=== PATIENT | female | born 1955 | race Caucasian/White ===

== ENCOUNTER → 2023-05-02 09:24 | Outpatient (REF) | payer MEDICARE, OTHER, SELFPAY | LOC: HWRAD 09:24 | PROVIDERS: ATTENDING PHYSICIAN Internal Medicine; FAMILY PHYSICIAN Family Medicine | DX: F17.210 Nicotine dependence, cigarettes, uncomplicated (principal) | CPT/HCPCS: 71271 ==

== ENCOUNTER 2023-06-01 10:43 | Inpatient (IN) | payer MEDICARE, OTHER, SELFPAY ==
[2023-06-01] VITALS (14 sets, daily range): BP systolic 96–135; BP diastolic 62–84; BMI 34.6; BMI 33.9
[2023-06-01 06:13] LABS: % Basophils 0.3 % (0-2); % Eosinophils 0.1 % (0-6); % Immature Granulocytes 0.6 % (0-0.5); % Monocytes 5.5 % (1.7-9.3); % Neutrophils 81.5 % (42.2-75.2); Absolute Immature Granulocytes 0.1 10^3/uL (0-0.05); Absolute Monocytes 0.5 10^3/uL (0.1-0.6); Absolute Neutrophils 7.1 10^3/uL (1.4-6.5); Hematocrit 35.9 % (37.0-47.0); Hemoglobin 12.3 g/dL (12.0-16.0); Mean Corp Hgb Conc. 34.3 g/dL (33.0-37.0); Mean Corpuscular Hgb 29.5 pg (27.0-31.0); Mean Corpuscular Volume 86.1 fL (81.0-99.0); Mean Platelet Volume 9.6 fL (7.4-10.4); Nucleated Red Blood Cells % 0 %; Platelet Count 226 10^3/uL (130-400); Red Blood Cell Count 4.17 10^6/uL (4.20-5.40); Red Cell Dist. Width 14.9 % (11.5-14.5); White Blood Cell Count 8.7 10^3/uL (4.8-10.8)
--- NOTE | 2023-06-01 06:20 | ED.GENMED ---
History of Present Illness
General
Chief Complaint: Breathing Problem
Source: patient
Time Seen by Provider: 06/01/23 06:13
Travel History
Have you had any contact with someone who has COVID-19?: No
Do you have any symptoms of coronavirus? Fever > 100 degrees, chills, cough, shortness of breath, sore throat, loss of taste or smell, muscle aches, or headache?: No
History of Present Illness
History of Present Illness:
67-year-old female presents to the emergency room complaining of shortness of breath and COPD exacerbation. Patient has been feeling unwell for the past 3 to 4 days. Patient was vacationing in [place] when she began to feel increased shortness of
breath, cough and wheezing. She went to an urgent care where she was found to be hypoxic. She received nebs, a 'shot' of a steroid and was prescribed doxycycline. She did feel a bit better after her urgent care visit and decided to come directly
home. They returned home from [place] yesterday. She became quite short of breath again early this morning. She checked her home pulse ox and obtained a reading of 79%. Upon arrival here she was noted to have a pulse ox of 84%. She does endorse
a productive cough. She attempted nebs at home prior to coming to the emergency room without improvement.
Past History
Past History
ED Past Medical History: Cancer (right breast 2017), COPD, GERD, HTN, Hypercholesterolemia and Other (RA)
ED Past Surgical History: Orthopedic, Tonsilectomy and Other (Right mastectomy 2017 (no chemo, no radiation))
Social History
Tobacco: Smoker (5 cigarettes/day)
Alcohol: Occasional
Drug: None
Personal:
Living: with family
Employment: Employed
Family History
Family History: Other (Nonsignificant)
Phy Exam
Physical Exam
Physical Exam:
General: Awake, Alert, Oriented X3. Increased work of breathing
Vitals: Hypoxic on room air
Head: Atraumatic
Eyes: Pupils equal, EOMI
Throat: Airway intact, no exudates
Neck: Trachea midline
Lungs: X-ray wheezing and rhonchi bilaterally
Heart: Regular rate, no murmurs
Abd: Soft, Nontender, No pulsatile mass
Neuro: Nonfocal
Skin: Warm, dry, no rash
Extremities: pulses equal b/l, no edema
Scores
Heart Failure Risk
Heart Failure Risk Score: Not Applicable
Course
Orders/Labs/Results
Orders:
Orders
06/01/23 05:40
Electrocardiogram (*1) Urgent
Reason for Study: Other
Other Reason for Exam: Possible Sepsis
Cardiac Monitoring- Treatment ONCE
IV Insert/Care/Rem.- Treatment PRN
CR Chest Portable - 1 View Urgent
Comment:
Reason For Exam: shortness of breath
Reason Study Needs to be Portable: Patient Unstable
O2 Therapy [RESP] Urgent
Titrate/Wean O2 to maintain O2 sat greater than (%): 93
Special Instructions: TO MAINTAIN CONTINUOUS O2 SATS > OR = 93%
Pulse Ox/cont/shift [RESP] Urgent
Quantity: 1
Special Instructions: CONTINUOUS
06/01/23 05:41
EKG- Treatment ONCE
06/01/23 05:50
COVID-19 Antigen Urgent
Source: Nasal Swab
Complete Blood Count/With Diff Urgent
Comprehensive Metabolic Panel Urgent
Lactic Acid Q4H
Comment: ON ICE, CANCEL 2ND ORDER IF FIRST LACTIC ACID LEVEL <2
Troponin I Urgent
Blood Culture Q30M
CRISELDA Source: Blood/Venous
Specimen Description:
Comment: FROM 2 SEPARATE SITES
INF RAPID [Influenza A+B Rapid Molecular] Urgent
CRISELDA Source: Nasal Swab
Specimen Description:
06/01/23 05:56
Blood Culture Q30M
CRISELDA Source: Blood/Venous
Specimen Description:
Comment: FROM 2 SEPARATE SITES
06/01/23 06:19
Albuterol Sulfate [Ventolin Nebules] 7.5 mg INH R NOW STA
Ipratropium Nebs [Atrovent Nebules] 1 mg INH R NOW STA
06/01/23 06:20
Dexamethasone Sod Phosphate [Decadron] 8 mg IV NOW STA
06/01/23 07:48
Azithromycin 500 mg/250 ml [Zithromax Infusion] 500 mg in 250 ml IV NOW
06/01/23 09:45
Lactic Acid Q4H
Comment: ON ICE, CANCEL 2ND ORDER IF FIRST LACTIC ACID LEVEL <2
Abnormal Lab Results
06/01/23
05:50
RBC 4.17 L 10^6/uL
(4.20-5.40)
Hct 35.9 L %
(37.0-47.0)
RDW 14.9 H %
(11.5-14.5)
Abs Immat Gran (auto) 0.1 H 10^3/uL
(0-0.05)
Absolute Neuts (auto) 7.1 H 10^3/uL
(1.4-6.5)
Absolute Lymphs (auto) 1.0 L 10^3/uL
(1.2-3.4)
Immature Gran % 0.6 H %
(0-0.5)
Neutrophils % 81.5 H %
(42.2-75.2)
Lymphocytes % 12.0 L %
(20.5-51.1)
Sodium 131 L mmol/L
(135-145)
Chloride 95 L mmol/L
(98-107)
AST 39 H U/L
(14-36)
Total Protein 8.5 H g/dl
(6.3-8.2)
06/01/23 05:50
06/01/23 05:50
Vital Signs
Initial and Last Documented VS:
Initial Vital Signs
Temp Pulse Resp BP Pulse Ox
98.9 F 86 28 112/78 84
06/01/23 05:24 06/01/23 05:24 06/01/23 05:24 06/01/23 05:24 06/01/23 05:24
Last Documented Vital Signs
Temp Pulse Resp BP Pulse Ox
99.1 F 95 20 96/62 92
06/01/23 08:29 06/01/23 08:15 06/01/23 08:15 06/01/23 08:15 06/01/23 08:48
MDM/Problems Addressed
Differential Diagnosis Includes:
Pneumonia, bronchitis, COPD exacerbation, pneumothorax
MDM/Problems Addressed:
Patient had some improvement with an hour-long neb. However she still has significant expiratory wheezing on reevaluation. Patient attempted to walk to the bathroom which she was able to do so but felt quite short of breath by the time she got
back to bed. Chest x-ray does not show any obvious infiltrate though there are chronic changes. She is not anemic. Troponin is normal there is no ischemic changes on EKG. Will hospitalize the patient for COPD exacerbation. Will cover with
azithromycin for potential bacterial bronchitis.
*Radiology
Radiology exam reviewed: preliminary read by ED provider (Personally reviewed the patient's chest x-ray see chronic changes COPD but no acute infiltrate)
*Pulse Oximetry
Patient hypoxic: yes
*EKG
Interpreted by ED Provider?: Yes
Interpretation: normal
Heart Rate: 85
Rate: normal
Rhythm: sinus
[place]: normal axis
Interval: normal interval
QRS Pattern: normal QRS
Ischemia: no ischemia
*Pathology Technologist Interpretation
Rate: normal
Interpretation: normal
Heart Rate: 85
Rhythm: sinus
*Critical Care Note
Total Time (30-74mins, 75-104mins- exclusive of procedures): Not Applicable
Patient Management
Social determinants of health affecting care: Strong social support
ED Attending Note
-
Portions of this chart may have been created with voice recognition software.� Occasional wrong word or��sound alike� substitutions may have occurred due to the inherent limitations of voice recognition software.
Discharge Plan
Departure
Patient Disposition: Admit
Date of Disposition: 06/01/23
Time of Disposition: 07:49
Admit to: Med/Surg
Presentation/result/management discussed w/ accepting MD/DO: Hospitalist
Condition: Fair
Discharge Problem:
COPD exacerbation, Hypoxia
Prescriptions:
No Action
hydroxychloroquine 200 MG tablet
400 mg PO DAILY
prednisone 10 mg tablet
10 mg PO .TAPER
Hold Instructions: Resume on 05/06/22.
Rx Instructions:
40mg x 3 days, 30mg x 3 days, 20mg x 3 days, 10mg x 3 days
metoprolol succinate 100 mg tablet extended release 24 hr
100 mg PO HS
amlodipine 5 mg tablet
5 mg PO DAILY
valsartan 320 mg tablet
320 mg PO HS
pravastatin 20 mg tablet
20 mg PO HS
albuterol sulfate 90 mcg/actuation HFA aerosol inhaler
1 puff INHALATION R Q4 PRN (Reason: sob/wheezing)
doxycycline hyclate 100 mg tablet
100 mg PO BID
esomeprazole magnesium [Nexium] 40 mg Capsule,Delayed Release(Dr/Ec)
40 mg PO DAILY
Trelegy Ellipta 200-62.5-25 mcg Blister With Device
1 inh INHALATION DAILY
Referrals:
Guy Srivastava MD [Family Provider] -
Interventions
Interventions:
*Risk Screen - Suicide Last Done: 06/01/23 05:24
*General Assessment Last Done: 06/01/23 05:36
*Neglect/Abuse Screening Last Done: 06/01/23 05:24
ED- Fall Risk Assessment Last Done: 06/01/23 05:50
*ED COVID-19 Vaccine History Last Done: 06/01/23 05:35
ED- Cardiac Assessment Last Done: 06/01/23 06:02
ED- Pulmonary Assessment Last Done: 06/01/23 08:48
[2023-06-01] MEDS: ATROVENT NEBULES 1 MG INH (06:25)
[2023-06-01] MEDS: VENTOLIN NEBULES 7.5 MG INH (06:25)
[2023-06-01 06:27] LABS: ALT (SGPT) 30 U/L (0-35); AST (SGOT) 39 U/L (14-36); Albumin 4.2 g/dl (3.5-5.0); Alkaline Phosphatase 63 U/L (38-126); Blood Urea Nitrogen 16 mg/dl (7-17); Calcium 9.2 mg/dl (8.4-10.2); Carbon Dioxide 30 mmol/L (22-30); Chloride 95 mmol/L (98-107); Estimated Creatinine Clearance 82 ml/min; Glucose 78 mg/dl (70-99); Potassium 3.9 mmol/L (3.5-5.1); Sodium 131 mmol/L (135-145); Total Bilirubin 0.5 mg/dl (0.2-1.3); Total Protein 8.5 g/dl (6.3-8.2); eGFR > 60.00
[2023-06-01 06:29] LABS: Lactic Acid 1.7 mmol/L (0.7-2.0)
[2023-06-01 06:31] LABS: COVID-19 Antigen Negative (Negative)
[2023-06-01 06:37] LABS: Troponin I < 0.012 ng/ml
[2023-06-01] MEDS: DECADRON 8 MG IV (06:38)
[2023-06-01] MEDS: ZITHROMAX INFUSION 250 IV (08:42)
--- NOTE | 2023-06-01 10:07 | W.PN.HOSP.TC ---
Today's Communication/Plan
-
steroids abx
Assessment / Plan
Assessment / Plan
Acute Hypoxic Respiratory Distress
Chronic obstructive lung disease
Hx of Cigs
has not fully stopped, though markedly reduced consumption to ~3 Cigs per month
Hx of Breast Cancer
Rt breast mastectomy 2017, URIEL, no chemo or XRT
HLD
P:steroids
abx
Pulm consult
full code
see dictated note
Anticipated Discharge: > 48 hours
Subjective/Interval History
-
Date of Service: June 01, 2023
Had been doing well past 13 months with several minor flares only, went to [place] (airplane) and within 4 days noted worsening respiratory distress. Returned to area where checked her SaO2 at 79%, came to [facility] this morning
Objective Data
-
Labs:
Laboratory Results
06/01/23
05:50
WBC 8.7
Hgb 12.3
Hct 35.9 L
Plt Count 226
Sodium 131 L
Potassium 3.9
Chloride 95 L
Carbon Dioxide 30
BUN 16
Creatinine 0.7
Glucose 78
Calcium 9.2
Total Bilirubin 0.5
AST 39 H
ALT 30
Alkaline Phosphatase 63
Vital Signs:
Vital Signs
Temp Pulse Resp BP Pulse Ox
99.1 F 95 20 96/62 92
06/01/23 08:29 06/01/23 08:15 06/01/23 08:15 06/01/23 08:15 06/01/23 08:48
Review of Systems
-
History Source: Patient and Coordinated Provider
Constitutional: Denies Fever
EENT: Denies Sore Throat
Respiratory: Reports Cough, Trouble Breathing and Wheezing
Cardiac: Denies Chest Pain
Abdomen/GI: Reports No Symptoms
Genitourinary: Reports No Symptoms
Musculoskeletal: Reports No Symptoms
Neuro: Reports No Symptoms
Physical Exam
-
General: Well Developed, Well Nourished, Respiratory Distress, Conversant and Obese
HEENT: Normocephalic, Atraumatic and Moist Mucous Membranes
Respiratory: Wheezes (tight high freq expiratory wheeze) and Decreased Breath Sounds (poor air movement)
Cardiac: Regular Rhythm and S1/S2
GI: Soft, Nontender and Nondistended
Musculoskeletal: No Clubbing, No Cyanosis and No Edema
Neuro: Awake, Alert and Oriented
--- NOTE | 2023-06-01 10:37 | CON.PUL ---
Consultation
Consultation Request
Date/Time Consultation Requested: 06/01/2023-8 AM
Date/Time Consultation Performed: 06/01/2023-8:30 AM
Requesting Provider: Hospitalist
Performing Provider: Dr. Thornton
Reason for Consultation: Shortness of breath
Medical History
-
Chief Complaint: Shortness of breath
History of Present Illness:
67-year-old female with a history of underlying COPD followed by Dr. Sheela Wallace who recently went to [place], developed an upper respiratory tract infection and had increasing wheezing, shortness of breath and came to the emergency room with a COPD
exacerbation-pulmonary consulted for COPD exacerbation 06/01/2023. She feels improved on oxygen and after nebulizer. She continues have significant shortness of breath. She does not complain of any fevers, chills or night sweats. She has some
chest congestion but minimal sputum production. She has increased wheezing but no nausea, abdominal pain, leg swelling or weakness.
Past Medical History
Past Medical History: None (COPD on albuterol, Breztri-Dr. Wallace. Active smoker-minimal now-former [id number]. Pulmonary fibrosis seen on CT 2017 after covid-mild.Covid 2020. Right breast cancer 2017. GERD. Hypertension. Hyperlipidemia.
Sleep apnea on CPAP with 2 L. RA on hydroxychloroquine. Tonsillectomy.)
Social History
Tobacco: Smoker ([id number]-now down to 1 cigarette every several days)
Alcohol: None
Drug: None
Personal:
Living: With Family
Occupational Exposures: No known tuberculosis exposure
Environmental Exposures: No known asbestos exposure
Family History
Family History: Reviewed & Not Pertinent
Allergies / Home Medications
Allergies
Allergy/AdvReac Type Severity Reaction Status Date / Time
No Known Allergies Allergy Verified 06/01/23 05:30
Home Medications
Medication Instructions Recorded Confirmed Last Taken Type
hydroxychloroquine 200 mg tablet 400 mg PO DAILY Autoimmune Disorder 1006/01/23 06/01/23 History
amlodipine 5 mg tablet 5 mg PO DAILY Blood Pressure 04/29/22 06/01/23 06/01/23 History
esomeprazole magnesium 40 mg 40 mg PO DAILY Gastrointestinal 04/29/22 06/01/23 06/01/23 History
capsule,delayed release (Nexium) Issue
metoprolol succinate 100 mg 100 mg PO HS Blood Pressure 04/29/22 06/01/23 05/31/23 History
tablet,extended release 24 hr
pravastatin 20 mg tablet 20 mg PO DAILY High Cholesterol 04/29/22 06/01/23 06/01/23 History
valsartan 320 mg tablet 320 mg PO HS Blood Pressure 04/29/22 06/01/23 05/31/23 History
doxycycline monohydrate 100 mg 100 mg PO BID Infection 06/01/23 06/01/23 06/01/23 History
capsule
fluticasone fur. 200 mcg-umeclid 1 inh inhalation R DAILY COPD 06/01/23 06/01/23 06/01/23 History
62.5 mcg-vilant 25 mcg
inhalat.powder (Trelegy Ellipta)
ipratropium 0.5 mg-albuterol 3 mg 3 ml inhalation R TIDPRN PRN sob 06/01/23 06/01/23 06/01/23 History
(2.5 mg base)/3 mL nebulization
soln
magnesium oxide 500 mg PO DAILY Supplement 06/01/23 06/01/23 06/01/23 History
Review of Systems
-
Unable to Obtain full review of systems at this time due to: Other (Per HPI)
Vitals / Labs / Diagnostic Testing
Vital Signs
Temp Pulse Resp BP Pulse Ox
99.1 F 95 20 96/62 92
06/01/23 08:29 06/01/23 08:15 06/01/23 08:15 06/01/23 08:15 06/01/23 08:48
Lab Data
06/01/23 05:50
06/01/23 05:50
Microbiology
06/01/23 05:50 Nasal Swab Influenza Types A & B (LADI) - Final
Negative for Influenza A & B, NAAT
Negative results must be combined with clinical observations
and patient history.
Nucleic Acid Amplification test (NAAT)performed on the
[employer] platform.
Diagnostic Testing:
Physical Exam
-
Exam:
Well-nourished and well-developed in no apparent distress
HEENT-atraumatic, normocephalic
Neck-supple, no JVD, no bruit
Heart-regular rate and rhythm-no murmurs, rubs or gallops
Chest with diminished breath sounds, prolonged expiratory time and expiratory wheezes bilaterally without crackles
Back without CVA tenderness
Abdomen-soft, nontender, nondistended, no hepatosplenomegaly
Extremities-no cyanosis, clubbing, edema and good peripheral pulses
Integument-intact, no rashes, lesions or ecchymosis
Neurology-alert and oriented, nonfocal motor and sensory exam
Assessment
-
67-year-old female with a history of underlying COPD followed by Dr. Sheela Wallace who recently went to [place], developed an upper respiratory tract infection and had increasing wheezing, shortness of breath and came to the emergency room with a COPD
exacerbation-pulmonary consulted for COPD exacerbation 06/01/2023.
Assessment
COPD exacerbation
Mild hyponatremia
Conditions present prior to admission:
R breast cancer, US guided biopsy 07-19-16, adenocarcinoma, ER/IN+, s/p mastectomy 2016, no chemo-XRT, on tamoxifen, s/p R breast reconstruction (prosthesis)
COPD, on albuterol, budesonide/glycopyrrolate/formoterol (breztri aerosphere)
Pulmonary fibrosis, seen since CT 2016 with very mild changes, slowly progressing overtime
COVID pneumonia 2020
GERD
HTN
HLD
RA, on hydroxychloroquine
Tonsillectomy
Smoker
Obstructive sleep apnea on CPAP with 2 L oxygen
Nocturnal hypoxemia
Periodic limb movements of sleep
Plan
Patient requires admission for severe COPD exacerbation and respiratory failure
Supplemental oxygen as needed
BiPAP if needed
High flow oxygen if appropriate
Intubate and mechanically ventilate if does not significantly improve
Duo nebs
Pulmicort nebulizers
Mucolytic's
Decadron 4 mg IV every 8 hours
Incentive spirometry
Acapella
Consider vest if difficulties mobilizing secretions
Consider chest physiotherapy if difficulties mobilizing secretions
Check cultures
Agree with empiric antibiotics-Rocephin and azithromycin
Monitor leukocytosis
Monitor blood sugars
Insulin supplementation as needed
Smoking cessation counseling if appropriate
DVT prophylaxis recommended-on heparin
GI prophylaxis recommended if on steroids for prolonged period
Early nutrition
Early mobilization
Reviewed with nursing, respiratory therapy, and primary team.
Outpatient pulmonary [id number]. Tran- Has appointment 06/14/23-10 AM with PFT
Diagnostic data:
Chest x-ray 04/29/2022-NAD, chronic interstitial airspace disease right upper lobe
Chest x-ray 06/01/2023-chronic interstitial changes progressed cannot rule out superimposed pulmonary edema
CT chest low-dose 05/02/2023-no findings suspicious for pulmonary malignancy, moderate changes of fibrotic mildly progressed compared to previous, status post right mastectomy, mildly enlarged mediastinal lymph nodes unchanged
Echocardiogram 01/12/2022-EF 60-65%, no change since 2014
Nuclear stress test 07/18-negative for ischemia, EF 73%, moderate risk study
PSG 10/21/2022-sleep efficiency 63%, AHI-41, desaturation marie 66%, 53% of time less than 90% saturation
CPAP titration 03/08/2023-sleep efficiency 71.6%, CPAP titrated to 11 cm and reduced AHI to 3.0, PLM index 34.9
Data Reviewed
-
PFT: Report reviewed by me
EKG: Report reviewed by me
Radiology: Report reviewed by me
CT Scan: Report reviewed by me
Medical Tests (Nuc Med, Echo etc): Report reviewed by me
Labs: Labs reviewed by me
Old Records: Reviewed
Total Time Spent with Patient (in minutes): 60
--- NOTE | 2023-06-01 13:32 | PTCARENOTE ---
pt aaox3. states her breathing feels better but gets sob when walking to bathroom. on nc4l. breath sounds diminished with ex wheezing. nsr seen on monitor.
--- NOTE | 2023-06-01 13:41 | CM ---
MEt patient in ED room as she was getting ready for lunch. She lives with her in one level home with 2 steps to enter.
SHe is independent in home and community. She has nebulizer, CPAP and oxygen from [employer]. She said she only use oxygen at night through her CPAP.
She does not anticipate any discharge needs.
She had [facility] in past after mastectomy.
PCP Dr. Srivastava
Pharmacy: [facility].
PLAN: home no needs.
[2023-06-01] MEDS: STERILE WATER FOR INJECTION 10 ML IV (13:47)
[2023-06-01] MEDS: ROCEPHIN 1000 MG IV (13:47)
[2023-06-01] MEDS: DECADRON 4 MG IV ×2 (13:47→20:59)
[2023-06-01 15:57] LABS: Urine Albumin Negative (Neg - Trace); Urine Bilirubin Negative (Negative); Urine Character Clear (Clear); Urine Color Yellow; Urine Glucose Negative (Negative); Urine Ketone Negative (Negative); Urine Leukocyte Negative (Negative); Urine Nitrite Negative (Negative); Urine Occult Blood Negative (Negative); Urine Urobilinogen Negative (Neg - 1+)
--- NOTE | 2023-06-01 18:20 | PTCARENOTE ---
Received pt from ER via wheelchair, accompanied by ER staff. Pt AAO x3, VILLALOBOS well, ambulatory to bed, no c/o weakness/dizziness. VSS. Placed on telemetry:NSR. On nc 4 lpm- pulse ox 95%, pt with (+) BENITES, denies SOB; states 'feeling better'. Abd
large, soft, BS (+). Pt DTV; stated will void in BR, will call for assistance if needed. Oriented to 4East, currently resting quietly. Will continue to monitor.
[2023-06-01] MEDS: DUONEB 3 ML INH (19:25)
[2023-06-01] MEDS: TOPROL XL 100 MG PO (20:57)
[2023-06-01] MEDS: HEPARIN 5000 UNITS SC (20:58)
[2023-06-01] MEDS: DIOVAN 320 MG PO (21:11)
[2023-06-02 03:34] VITALS: BP 144/85
[2023-06-02] MEDS: DUONEB 3 ML INH ×4 (04:12→20:11)
[2023-06-02 04:43] VITALS: BMI 33.5
[2023-06-02] MEDS: DECADRON 4 MG IV ×3 (05:01→21:13)
[2023-06-02 07:00] VITALS: BP 124/81
[2023-06-02 07:22] LABS: % Immature Granulocytes 0.3 % (0-0.5); % Lymphocytes 7.5 % (20.5-51.1); % Monocytes 5.4 % (1.7-9.3); % Neutrophils 86.8 % (42.2-75.2); Absolute Lymphocytes 0.4 10^3/uL (1.2-3.4); Absolute Monocytes 0.3 10^3/uL (0.1-0.6); Absolute Neutrophils 5.1 10^3/uL (1.4-6.5); Hematocrit 32.2 % (37.0-47.0); Mean Corp Hgb Conc. 34.2 g/dL (33.0-37.0); Mean Corpuscular Hgb 29.7 pg (27.0-31.0); Mean Platelet Volume 9.4 fL (7.4-10.4); Nucleated Red Blood Cells % 0 %; Platelet Count 174 10^3/uL (130-400); Red Cell Dist. Width 14.5 % (11.5-14.5); White Blood Cell Count 5.9 10^3/uL (4.8-10.8)
[2023-06-02 08:27] LABS: ALT (SGPT) 23 U/L (0-35); AST (SGOT) 29 U/L (14-36); Albumin 3.5 g/dl (3.5-5.0); Alkaline Phosphatase 55 U/L (38-126); Blood Urea Nitrogen 19 mg/dl (7-17); Calcium 8.9 mg/dl (8.4-10.2); Carbon Dioxide 29 mmol/L (22-30); Chloride 97 mmol/L (98-107); Estimated Creatinine Clearance 94 ml/min; Glucose 123 mg/dl (70-99); Potassium 4.1 mmol/L (3.5-5.1); Sodium 129 mmol/L (135-145); Total Bilirubin 0.4 mg/dl (0.2-1.3); Total Protein 7.4 g/dl (6.3-8.2); eGFR > 60.00
[2023-06-02] MEDS: MAGNESIUM OXIDE 500 MG PO (09:18)
[2023-06-02] MEDS: NORVASC 5 MG PO (09:18)
[2023-06-02] MEDS: HEPARIN 5000 UNITS SC ×2 (09:18→20:20)
[2023-06-02] MEDS: PROTONIX 40 MG PO (09:19)
[2023-06-02] MEDS: PLAQUENIL 400 MG PO (09:19)
[2023-06-02] MEDS: PRAVACHOL 20 MG PO (09:42)
--- NOTE | 2023-06-02 09:52 | W.PN.PUL.V3 ---
Today's Communication / Plan
-
Wean oxygen.
Increased activity.
Smoking cessation counseling.
No change in steroids.
Assessment
-
67-year-old female with a history of underlying COPD followed by Dr. Sheela Wallace who recently went to [place], developed an upper respiratory tract infection and had increasing wheezing, shortness of breath and came to the emergency room with a COPD
exacerbation-pulmonary consulted for COPD exacerbation 06/01/2023.
Assessment
COPD exacerbation
Mild hyponatremia
Conditions present prior to admission:
R breast cancer, US guided biopsy 07-19-16, adenocarcinoma, ER/RI+, s/p mastectomy 2016, no chemo-XRT, on tamoxifen, s/p R breast reconstruction (prosthesis)
COPD, on albuterol, budesonide/glycopyrrolate/formoterol (breztri aerosphere)
Pulmonary fibrosis, seen since CT 2016 with very mild changes, slowly progressing overtime
COVID pneumonia 2020
GERD
HTN
HLD
RA, on hydroxychloroquine
Tonsillectomy
Smoker
Obstructive sleep apnea on CPAP with 2 L oxygen
Nocturnal hypoxemia
Periodic limb movements of sleep
Plan
Patient requires admission for severe COPD exacerbation and respiratory failure
Continue supplemental oxygen-attempt to wean and assess discharge needs
BiPAP if needed
Continue duonebs as well as Pulmicort nebulizers
Decadron 4 mg IV every 8 hours-no change-likely will begin to reduce in the next 24 hours
Incentive spirometry Encouraged
Acapella
Consider vest if difficulties mobilizing secretions
Consider chest physiotherapy if difficulties mobilizing secretions
Cultures reviewed
Agree with empiric antibiotics-Rocephin and azithromycin
Follow blood sugars
Insulin supplementation as needed
DVT prophylaxis recommended-on heparin
GI prophylaxis recommended if on steroids for prolonged period
Nutrition
Begin ambulation
Reviewed with nursing
Outpatient pulmonary [id number]-Ch. Tran- has appointment 06/14/23-10 AM with PFT
Diagnostic data:
Chest x-ray 04/29/2022-NAD, chronic interstitial airspace disease right upper lobe
Chest x-ray 06/01/2023-chronic interstitial changes progressed cannot rule out superimposed pulmonary edema
CT chest low-dose 05/02/2023-no findings suspicious for pulmonary malignancy, moderate changes of fibrotic mildly progressed compared to previous, status post right mastectomy, mildly enlarged mediastinal lymph nodes unchanged
Echocardiogram 01/12/2022-EF 60-65%, no change since 2014
Nuclear stress test 07/18-negative for ischemia, EF 73%, moderate risk study
PSG 10/21/2022-sleep efficiency 63%, AHI-41, desaturation marie 66%, 53% of time less than 90% saturation
CPAP titration 03/08/2023-sleep efficiency 71.6%, CPAP titrated to 11 cm and reduced AHI to 3.0, PLM index 34.9
Subjective Data
-
Date of Service:
Date of Service: June 02, 2023
Chief Complaint: Pulmonary Follow Up and Dyspnea Follow Up
Subjective:
Still some wheezing, shortness of breath, no chest pain, difficulties mobilizing secretions, no abdominal pain
Review of Systems
General: Other ( per HPI)
Objective Data
Data Reviewed
Vital Signs / I&O:
Vital Signs
Temp Pulse Resp BP Pulse Ox
98.2 F 68 20 124/81 96
06/02/23 07:00 06/02/23 09:18 06/02/23 07:58 06/02/23 09:18 06/02/23 07:58
Intake and Output
06/01/23 06/02/23 06/03/23
06:59 06:59 06:59
Intake Total 480 / 480
Balance 480 / 480
SaO2: 96
Nasal Cannula flow liters per minute: 4
Physical Exam
General: Respiratory Distress (n) and Comfortable
HEENT: Normocephalic, Anicteric and Moist Mucous Membranes
Cardiovascular: Regular Rhythm
Respiratory: Wheeze ( expiratory), Crackles (n), Rhonchi (n), Non-Labored Respirations, Accessory Resp Muscle Use (n) and Stridor (n)
GI: Soft, Non Distended and Non Tender
Neurology: Awake, Alert and No Motor Deficits
Skin: Warm, Good Color, Cyanosis (n), Jaundice (n) and Rash (n)
Labs/Micro/Reports
Lab Data
06/02/23 07:04
06/02/23 07:04
Microbiology
06/01/23 05:56 Blood/Venous Blood Culture - Preliminary
No Growth in 24 hours- Final report to follow
06/01/23 05:50 Blood/Venous Blood Culture - Preliminary
No Growth in 24 hours- Final report to follow
06/01/23 05:50 Nasal Swab Influenza Types A & B (LADI) - Final
Negative for Influenza A & B, NAAT
Negative results must be combined with clinical observations
and patient history.
Nucleic Acid Amplification test (NAAT)performed on the
[employer] platform.
[2023-06-02] MEDS: ZITHROMAX INFUSION 250 IV (10:21)
[2023-06-02 11:00] VITALS: BP 99/68
--- NOTE | 2023-06-02 12:18 | W.PN.HOSP.TC ---
Today's Communication/Plan
-
continue current Tx
Assessment / Plan
Assessment / Plan
Acute Hypoxic Respiratory Distress
better, now 95% on 3 L/M
Influenza negative, pt unable to raise phlegm to give a sample
Chronic obstructive lung disease
Hx of Cigs
has not fully stopped, though markedly reduced consumption to ~3 Cigs per month. Discussed importance of absolute cessation
Hx of Breast Cancer
Rt breast mastectomy 2017, URIEL, no chemo or XRT
HLD
P:steroids, would not decrease yet
abx
Pulm consult appreciated
full code
met with dgt and in room
Anticipated Discharge: > 48 hours
Subjective/Interval History
-
Date of Service: June 02, 2023
Breathing better
Objective Data
-
Labs:
Laboratory Results
06/02/23
07:04
WBC 5.9
Hgb 11.0 L
Hct 32.2 L
Plt Count 174 D
Sodium 129 L
Potassium 4.1
Chloride 97 L
Carbon Dioxide 29
BUN 19 H
Creatinine 0.5 L
Glucose 123 H
Calcium 8.9
Total Bilirubin 0.4
AST 29
ALT 23
Alkaline Phosphatase 55
Vital Signs:
Vital Signs
Temp Pulse Resp BP Pulse Ox
98 F 73 18 99/68 95
06/02/23 11:00 06/02/23 11:00 06/02/23 11:00 06/02/23 11:00 06/02/23 11:00
I&O
06/01/23 06/02/23 06/03/23
06:59 06:59 06:59
Intake Total 480 / 480
Balance 480 / 480
Review of Systems
-
History Source: Patient and Coordinated Provider
Constitutional: Denies Fever
EENT: Denies Sore Throat
Respiratory: Reports Cough, Trouble Breathing (better) and Wheezing
Cardiac: Denies Chest Pain
Abdomen/GI: Reports No Symptoms
Genitourinary: Reports No Symptoms
Musculoskeletal: Reports No Symptoms
Neuro: Reports No Symptoms
Physical Exam
-
General: Well Developed, Well Nourished, Respiratory Distress, Conversant and Obese
HEENT: Normocephalic, Atraumatic and Moist Mucous Membranes
Respiratory: Wheezes (expiratory wheeze with improved air movement) and Decreased Breath Sounds (significantly improved air movement)
Cardiac: Regular Rhythm and S1/S2
GI: Soft, Nontender and Nondistended
Musculoskeletal: No Clubbing, No Cyanosis and No Edema
Neuro: Awake, Alert and Oriented
--- NOTE | 2023-06-02 14:15 | PN.CDI ---
CDI
- -
CDI:
Physician Documentation Request
Admit Date: 06/01/23 10:43
Dear Doctor Erin,
Clinical Indicators:
Patient admitted with COPD exacerbation.
3/6 H & P, 'Acute hypoxic respiratory distress with significant hypoxemia.'
3/6 Pulmonary consult, '...severe COPD exacerbation and respiratory failure.'
02 requirements:
06/01/23
05:35 06/01/23
05:40 06/01/23
06:02
Nasal Cannula flow liters per minute 6 6 6
Please clarify which of the following accurately represents the patient's respiratory status:
Acute hypoxemic respiratory failure
Hypoxemia only
Other, please specify
Additional information for Respiratory Failure:
Recognized criteria for Respiratory Failure (Source: [facility] Hospitalist Jan 2013)
ABGs: (1 or more) Symptoms Please indicate type if known
1. p)2 <60 or RA SPO2 <91% on RA 1. Tachypnea, SOB, dyspnea Hypoxic
2. pCO2 50 and pH <7.35 2. Use of accessory muscles Hypercapnic
3. pO2 decrease of pCO2 increase by 3. Pallor or cyanosis Hypoxic and Hypercapnic
10 mmHg from baseline if known 4. Anxiety or restlessness Unable to determine
5. Unable to speak in full sentences
Supplemental O2 of > 40% (5LPM) Intubation is not required
Use of terms such as suspected, likely, concern for, or probable (associated with a specific diagnosis that is being evaluated, monitored, or treated as if it exists) are acceptable and can be coded in the inpatient setting, when documented at the
time of discharge.
Thank you,
TYRONE Noyola RN
CDI Specialist
available via tiger text
Please use your independent medical judgment in providing your response.
[2023-06-02] MEDS: STERILE WATER FOR INJECTION 10 ML IV (14:18)
[2023-06-02] MEDS: ROCEPHIN 1000 MG IV (14:19)
[2023-06-02 15:00] VITALS: BP 125/74
[2023-06-02 19:24] VITALS: BP 126/73
[2023-06-02] MEDS: TUMS 2 TABLET PO (20:18)
[2023-06-02] MEDS: DIOVAN 320 MG PO (21:15)
[2023-06-02] MEDS: TOPROL XL 100 MG PO (21:18)
[2023-06-02 23:47] VITALS: BP 124/77
[2023-06-03 03:20] VITALS: BP 138/77
[2023-06-03] MEDS: DUONEB 3 ML INH ×4 (05:17→20:17)
--- NOTE | 2023-06-03 05:22 | RESPNOTE ---
had been called several times to Mrs. Soto room, pt. c/o her home cpap not 'feeling' correct to her. She had asked to have her mask adjusted stating it has not fitted well since she had placed herself on her home machine. She asked to wear a
hospital unit. I brought one into the room, showed her the mask we use here at the hospital, because her home mask could not re retro fitted to fit the hospital cpap circuit. She asked what her machine was set for, I said 10 CmH20 for the pressure,
. She asked what the other numbers were on her machine, i let her know honestly it is not a hospital machine and I am not completely familiar with this home unit, and that the therapists here at [facility] are not trained on home units that
patients bring in, that I could not answer that for her. she refused to wear the hospital unit, and refused to wear her own. Pt has remained on a 3 lpm nasal cannula through the night
[2023-06-03] MEDS: DECADRON 4 MG IV ×2 (05:24→18:12)
[2023-06-03 05:39] VITALS: BMI 33.3
[2023-06-03 07:00] VITALS: BP 128/82
[2023-06-03] MEDS: NON-FORMULARY ITEM 1 UNIT INH (07:27)
[2023-06-03 07:30] LABS: % Immature Granulocytes 0.5 % (0-0.5); % Lymphocytes 10.3 % (20.5-51.1); % Monocytes 4.9 % (1.7-9.3); % Neutrophils 84.3 % (42.2-75.2); Absolute Lymphocytes 0.7 10^3/uL (1.2-3.4); Absolute Monocytes 0.3 10^3/uL (0.1-0.6); Absolute Neutrophils 5.3 10^3/uL (1.4-6.5); Hematocrit 35.9 % (37.0-47.0); Hemoglobin 12.1 g/dL (12.0-16.0); Mean Corp Hgb Conc. 33.7 g/dL (33.0-37.0); Mean Corpuscular Hgb 29.6 pg (27.0-31.0); Mean Corpuscular Volume 87.8 fL (81.0-99.0); Mean Platelet Volume 9.6 fL (7.4-10.4); Nucleated Red Blood Cells % 0 %; Platelet Count 200 10^3/uL (130-400); Red Blood Cell Count 4.09 10^6/uL (4.20-5.40); Red Cell Dist. Width 14.3 % (11.5-14.5); White Blood Cell Count 6.3 10^3/uL (4.8-10.8)
--- NOTE | 2023-06-03 08:06 | W.PN.PUL.V3 ---
Today's Communication / Plan
-
Change Decadron to prednisone
Increase activity
Wean FiO2
Assess discharge supplemental oxygen need prior to discharge
Continue antibiotics
Assessment
-
67-year-old female with a history of underlying COPD followed by Dr. Sheela Wallace who recently went to [place], developed an upper respiratory tract infection and had increasing wheezing, shortness of breath and came to the emergency room with a COPD
exacerbation-pulmonary consulted for COPD exacerbation 06/01/2023.
Assessment
COPD exacerbation
Mild hyponatremia
Conditions present prior to admission:
R breast cancer, US guided biopsy 07-19-16, adenocarcinoma, ER/AL+, s/p mastectomy 2016, no chemo-XRT, on tamoxifen, s/p R breast reconstruction (prosthesis)
COPD, on albuterol, budesonide/glycopyrrolate/formoterol (breztri aerosphere)
Pulmonary fibrosis, seen since CT 2016 with very mild changes, slowly progressing overtime
COVID pneumonia 2020
GERD
HTN
HLD
RA, on hydroxychloroquine
Tonsillectomy
Smoker
Obstructive sleep apnea on CPAP with 2 L oxygen
Nocturnal hypoxemia
Periodic limb movements of sleep
Plan
Patient requires admission for severe COPD exacerbation and respiratory failure
Respiratory status slowly improving
Continue supplemental oxygen and attempt to wean-assess discharge supplemental oxygen needs prior to discharge
BiPAP if needed
Continue duonebs as well as Pulmicort nebulizers
Change Decadron to prednisone 40 mg with slow taper
Incentive spirometry encouraged
Acapella also encouraged
Cultures reviewed
Agree with empiric antibiotics-Rocephin and azithromycin-finite course
Monitor blood sugars
Insulin supplementation as needed
DVT prophylaxis recommended-on heparin
GI prophylaxis recommended if on steroids for prolonged period
Nutrition
Increase activity
Reviewed with nursing
Outpatient pulmonary [facility]. Sheela Wallace- has appointment 06/14/23-10 AM with PFT
Diagnostic data:
Chest x-ray 04/29/2022-NAD, chronic interstitial airspace disease right upper lobe
Chest x-ray 06/01/2023-chronic interstitial changes progressed cannot rule out superimposed pulmonary edema
CT chest low-dose 05/02/2023-no findings suspicious for pulmonary malignancy, moderate changes of fibrotic mildly progressed compared to previous, status post right mastectomy, mildly enlarged mediastinal lymph nodes unchanged
Echocardiogram 01/12/2022-EF 60-65%, no change since 2014
Nuclear stress test 07/18-negative for ischemia, EF 73%, moderate risk study
PSG 10/21/2022-sleep efficiency 63%, AHI-41, desaturation marie 66%, 53% of time less than 90% saturation
CPAP titration 03/08/2023-sleep efficiency 71.6%, CPAP titrated to 11 cm and reduced AHI to 3.0, PLM index 34.9
Subjective Data
-
Date of Service:
Date of Service: June 03, 2023
Chief Complaint: Pulmonary Follow Up and Dyspnea Follow Up
Subjective:
Still quite wheezy, has some shortness of breath that is improved with exertion, no chest pain, not producing any sputum, no abdominal pain
Review of Systems
General: Other ( Per HPI)
Objective Data
Data Reviewed
Vital Signs / I&O:
Vital Signs
Temp Pulse Resp BP Pulse Ox
98.0 F 89 17 138/77 96
06/03/23 03:20 06/03/23 05:21 06/03/23 05:21 06/03/23 03:20 06/03/23 05:21
Intake and Output
06/02/23 06/03/23 06/04/23
06:59 06:59 06:59
Intake Total 480 / 480
Balance 480 / 480
SaO2: 96
Nasal Cannula flow liters per minute: 3
Physical Exam
General: Respiratory Distress (n) and Comfortable
HEENT: Normocephalic, Anicteric and Moist Mucous Membranes
Cardiovascular: Regular Rhythm
Respiratory: Wheeze ( expiratory), Crackles (n), Rhonchi (n), Non-Labored Respirations, Accessory Resp Muscle Use (n) and Stridor (n)
GI: Soft, Non Distended and Non Tender
Neurology: Awake, Alert and No Motor Deficits
Skin: Warm, Good Color, Cyanosis (n), Jaundice (n) and Rash (n)
Labs/Micro/Reports
Lab Data
06/03/23 07:01
Microbiology
06/01/23 05:50 Blood/Venous Blood Culture - Preliminary
No Growth in 48 hours- Final report to follow
06/01/23 05:56 Blood/Venous Blood Culture - Preliminary
No Growth in 48 hours- Final report to follow
06/01/23 05:50 Nasal Swab Influenza Types A & B ([facility]I) - Final
Negative for Influenza A & B, NAAT
Negative results must be combined with clinical observations
and patient history.
Nucleic Acid Amplification test (NAAT)performed on the
[employer] - is now [employer] platform.
[2023-06-03 08:07] LABS: Blood Urea Nitrogen 19 mg/dl (7-17); Calcium 9.1 mg/dl (8.4-10.2); Carbon Dioxide 30 mmol/L (22-30); Chloride 91 mmol/L (98-107); Estimated Creatinine Clearance 81 ml/min; Glucose 114 mg/dl (70-99); Sodium 125 mmol/L (135-145); eGFR > 60.00
[2023-06-03] MEDS: MAGNESIUM OXIDE 500 MG PO (08:46)
[2023-06-03] MEDS: PROTONIX 40 MG PO (08:46)
[2023-06-03] MEDS: PRAVACHOL 20 MG PO (08:46)
[2023-06-03] MEDS: NORVASC 5 MG PO (08:46)
[2023-06-03] MEDS: PLAQUENIL 400 MG PO (08:46)
[2023-06-03] MEDS: HEPARIN 5000 UNITS SC ×2 (08:46→20:57)
[2023-06-03] MEDS: ZITHROMAX INFUSION 250 IV (08:47)
--- NOTE | 2023-06-03 09:55 | W.PN.HOSP.TC ---
Today's Communication/Plan
-
begin to taper steroids and oxygen
Assessment / Plan
Assessment / Plan
Acute Hypoxic Respiratory Distress
better, now 95% on 3 L/M
discussed with nurse, would like to wean off oxygen,if tolerates today
Influenza negative, pt unable to raise phlegm to give a sample
Acute hypoxemic respiratory failure, in process of resolving, though was POA
Chronic obstructive lung disease
Hx of Cigs
has not fully stopped, though markedly reduced consumption to ~3 Cigs per month. Discussed importance of absolute cessation
Hx of Breast Cancer
Rt breast mastectomy 2017, URIEL, no chemo or XRT
HLD
P:steroids, will begin to taper
abx
Pulm consult appreciated
full code
met with dgt and in room 06/01
Anticipated Discharge: 24 - 48 hours
Subjective/Interval History
-
Date of Service: June 03, 2023
Looks remarkably better
Objective Data
-
Labs:
Laboratory Results
06/03/23
07:01
WBC 6.3
Hgb 12.1
Hct 35.9 L
Plt Count 200
Sodium 125 L
Potassium 4.0
Chloride 91 L
Carbon Dioxide 30
BUN 19 H
Creatinine 0.7
Glucose 114 H
Calcium 9.1
Vital Signs:
Vital Signs
Temp Pulse Resp BP Pulse Ox
98 F 71 18 128/82 96
06/03/23 07:00 06/03/23 08:46 06/03/23 08:19 06/03/23 08:46 06/03/23 08:19
I&O
06/02/23 06/03/23 06/04/23
06:59 06:59 06:59
Intake Total 480 / 480
Balance 480 / 480
Review of Systems
-
History Source: Patient and Coordinated Provider
Constitutional: Denies Fever
EENT: Denies Sore Throat
Respiratory: Reports Cough, Trouble Breathing (resolved) and Wheezing (better, improved air movement with only mid-end expiratory wheeze)
Cardiac: Denies Chest Pain
Abdomen/GI: Reports No Symptoms
Genitourinary: Reports No Symptoms
Musculoskeletal: Reports No Symptoms
Neuro: Reports No Symptoms
Physical Exam
-
General: Well Developed, Well Nourished, Respiratory Distress, Conversant and Obese
HEENT: Normocephalic, Atraumatic and Moist Mucous Membranes
Respiratory: Wheezes (mid to end expiratory wheeze with improved air movement) and Decreased Breath Sounds (significantly improved air movement)
Cardiac: Regular Rhythm and S1/S2
GI: Soft, Nontender and Nondistended
Musculoskeletal: No Clubbing, No Cyanosis and No Edema
Neuro: Awake, Alert and Oriented
[2023-06-03 11:00] VITALS: BP 116/80
[2023-06-03] MEDS: FLUSH (NSS) 1 FLUSH IV ×2 (13:41→18:13)
[2023-06-03] MEDS: ROCEPHIN 1000 MG IV (13:43)
[2023-06-03] MEDS: STERILE WATER FOR INJECTION 10 ML IV (13:43)
[2023-06-03 15:00] VITALS: BP 108/73
--- NOTE | 2023-06-03 15:46 | CM ---
Chart reviewed, patient seen bedside. Per Hospitalist note, taper oxygen needs. CM will continue to follow for discharge planning needs.
Plan; home no needs likely.
[2023-06-03 19:48] VITALS: BP 131/70
[2023-06-03] MEDS: DIOVAN 320 MG PO (21:02)
[2023-06-03] MEDS: TOPROL XL 100 MG PO (21:02)
[2023-06-03 23:51] VITALS: BP 118/74
[2023-06-04 03:26] VITALS: BP 115/79
[2023-06-04 06:00] VITALS: BMI 33.0
[2023-06-04] MEDS: DUONEB 3 ML INH (07:28)
[2023-06-04] MEDS: NON-FORMULARY ITEM 1 UNIT INH (07:29)
[2023-06-04 07:58] VITALS: BP 142/82
[2023-06-04] MEDS: PRAVACHOL 20 MG PO (08:30)
[2023-06-04] MEDS: DELTASONE 40 MG PO (08:30)
[2023-06-04] MEDS: NORVASC 5 MG PO (08:30)
[2023-06-04] MEDS: PROTONIX 40 MG PO (08:31)
[2023-06-04] MEDS: HEPARIN SC (08:31)
[2023-06-04] MEDS: ZITHROMAX INFUSION 250 IV (08:31)
[2023-06-04] MEDS: PLAQUENIL 400 MG PO (08:31)
[2023-06-04] MEDS: MAGNESIUM OXIDE 500 MG PO (08:31)
[2023-06-04 11:45] VITALS: BP 122/81
--- NOTE | 2023-06-04 12:07 | W.PN.PUL3 ---
Today's Communication / Plan
-
Doing well, can use O2 at home, she has port concentrator
Prednisone taper/reviewed dosing at length
Outpatient pulmonary FU recommended--she has visit, we discussed repeat PFT/6MWT at visit
Discharge planning per team
Assessment
-
67-year-old female with a history of underlying COPD followed by Dr. Sheela Wallace who recently went to [place], developed an upper respiratory tract infection and had increasing wheezing, shortness of breath and came to the emergency room with a COPD
exacerbation-pulmonary consulted for COPD exacerbation 06/01/2023.
COPD exacerbation
Mild hyponatremia
Conditions present prior to admission:
R breast cancer, US guided biopsy 07-19-16, adenocarcinoma, ER/IN+, s/p mastectomy 2016, no chemo-XRT, on tamoxifen, s/p R breast reconstruction (prosthesis)
COPD, on albuterol, budesonide/glycopyrrolate/formoterol (breztri aerosphere)
Pulmonary fibrosis, seen since CT 2016 with very mild changes, slowly progressing overtime
COVID pneumonia 2020
GERD
HTN
HLD
RA, on hydroxychloroquine
Tonsillectomy
Smoker
Obstructive sleep apnea on CPAP with 2 L oxygen
Nocturnal hypoxemia
Periodic limb movements of sleep
Plan
Patient requires admission for severe COPD exacerbation and respiratory failure
Respiratory status improving
Continue supplemental oxygen and attempt to wean-assess discharge supplemental oxygen needs prior to discharge
She has O2 to use at home, with exertion
BiPAP if needed
Continue duonebs as well as Pulmicort nebulizers
Change Decadron to prednisone 40 mg with slow taper-reviewed taper dosing
Incentive spirometry encouraged
Acapella also encouraged
Cultures reviewed
Agree with empiric antibiotics-Rocephin and azithromycin-finite course
Monitor blood sugars
Insulin supplementation as needed
DVT prophylaxis recommended-on heparin
GI prophylaxis recommended if on steroids for prolonged period
Nutrition
Increase activity
Reviewed with nursing
Outpatient pulmonary [facility]. Sheela Wallace- has appointment 06/14/23-10 AM with PFT
I reviewed follow up instructions with patient
Diagnostic data:
Chest x-ray 04/29/2022-NAD, chronic interstitial airspace disease right upper lobe
Chest x-ray 06/01/2023-chronic interstitial changes progressed cannot rule out superimposed pulmonary edema
CT chest low-dose 05/02/2023-no findings suspicious for pulmonary malignancy, moderate changes of fibrotic mildly progressed compared to previous, status post right mastectomy, mildly enlarged mediastinal lymph nodes unchanged
Echocardiogram 01/12/2022-EF 60-65%, no change since 2014
Nuclear stress test 07/18-negative for ischemia, EF 73%, moderate risk study
PSG 10/21/2022-sleep efficiency 63%, AHI-41, desaturation marie 66%, 53% of time less than 90% saturation
CPAP titration 03/08/2023-sleep efficiency 71.6%, CPAP titrated to 11 cm and reduced AHI to 3.0, PLM index 34.9
Subjective Data
-
Date of Service:
Date of Service: June 04, 2023
Chief Complaint: Pulmonary Follow Up and Dyspnea Follow Up
Subjective:
Doing well, remains on 2L
Wants to go home
Objective Data
Data Reviewed
Vital Signs / I&O / Oxygen:
Vital Signs
Temp Pulse Resp BP Pulse Ox
97.7 F 75 16 122/81 92
06/04/23 11:45 06/04/23 11:45 06/04/23 11:45 06/04/23 11:45 06/04/23 11:45
Intake and Output
06/03/23 06/04/23 06/05/23
06:59 06:59 07:59
Intake Total 900 / 900
Balance 900 / 900
SaO2 92
Nasal Cannula flow liters per 1
minute
Physical Exam
General: Respiratory Distress (n) and Comfortable
HEENT: Normocephalic, Anicteric and Moist Mucous Membranes
Cardiovascular: Regular Rhythm
Respiratory: Wheeze ( expiratory), Crackles (n), Rhonchi (n), Non-Labored Respirations, Accessory Resp Muscle Use (n) and Stridor (n)
GI: Soft, Non Distended and Non Tender
Neurology: Awake, Alert, Oriented, AO x 3 and No Motor Deficits
Skin: Warm, Good Color, Cyanosis (n), Jaundice (n) and Rash (n)
Labs/Micro/Reports
Lab Data
06/03/23 07:01
06/03/23 07:01
Microbiology
06/01/23 05:50 Blood/Venous Blood Culture - Preliminary
No Growth in 72 hours- Final report to follow
06/01/23 05:56 Blood/Venous Blood Culture - Preliminary
No Growth in 72 hours- Final report to follow
--- NOTE | 2023-06-04 13:08 | W.PN.HOSP.TC ---
Today's Communication/Plan
-
dc now
Assessment / Plan
Assessment / Plan
Acute Hypoxic Respiratory Distress
better, now 92-95% on 1 L/M
attempt to wean off oxygen was unsuccessful, pt has oxygen at home that she uses with CPAP. With ambulation, SaO2 dropped to 86-89%
Influenza negative, pt unable to raise phlegm to give a sample
Acute hypoxemic respiratory failure, in process of resolving, though was POA
Chronic obstructive lung disease
Hx of Cigs
has not fully stopped, though markedly reduced consumption to ~3 Cigs per month. Discussed importance of absolute cessation
Hx of Breast Cancer
Rt breast mastectomy 2017, URIEL, no chemo or XRT
HLD
P:steroids, now on Prednisone, will begin to taper
abx
Pulm consult appreciated
full code
met with dgt and in room 06/01
dc now
More than 30 minutes spent in discharge including
Final examination of the patient
Summarizing hospital stay
Instructions for continuing care to all relevant caregivers
Preparation of discharge records, prescriptions, and referral forms
Total time spent (in minutes): 45
see dictated note
Anticipated Discharge: Today
Subjective/Interval History
-
Date of Service: June 04, 2023
Breathing is much improved and pt would like to be dc to home
Objective Data
-
Vital Signs:
Vital Signs
Temp Pulse Resp BP Pulse Ox
97.7 F 75 16 122/81 92
06/04/23 11:45 06/04/23 11:45 06/04/23 11:45 06/04/23 11:45 06/04/23 11:45
I&O
06/03/23 06/04/23 06/05/23
06:59 06:59 07:59
Intake Total 900 / 900
Balance 900 / 900
Review of Systems
-
History Source: Patient and Coordinated Provider
Constitutional: Denies Fever
EENT: Denies Sore Throat
Respiratory: Reports Cough, Trouble Breathing (resolved) and Wheezing (better, improved air movement with only mid-end expiratory wheeze on forced expiration)
Cardiac: Denies Chest Pain
Abdomen/GI: Reports No Symptoms
Genitourinary: Reports No Symptoms
Musculoskeletal: Reports No Symptoms
Neuro: Reports No Symptoms
Physical Exam
-
General: Well Developed, Well Nourished, Respiratory Distress, Conversant and Obese
HEENT: Normocephalic, Atraumatic and Moist Mucous Membranes
Respiratory: Wheezes (mid to end expiratory wheeze with improved air movement) and Decreased Breath Sounds (significantly improved air movement)
Cardiac: Regular Rhythm and S1/S2
GI: Soft, Nontender and Nondistended
Musculoskeletal: No Clubbing, No Cyanosis and No Edema
Neuro: Awake, Alert and Oriented
--- NOTE | 2023-06-05 08:52 | CM ---
'(late entry for 06/04/23)
CM following re: d/c planning
Chart reviewed
Pt stable for d/c
Pt has no needs
IMM was sent to patient electronically
PLAN; d/c home no needs
--- NOTE | 2023-06-05 14:24 | W.DS.TRANS ---
DC Summary - [employer]
-
Discharge Instructions:
Discharge Diagnosis/Procedures Acute Exacerbation of COPD
Diet Regular
Activity No strenuous activity
Driving Restrictions Not until seen by your Dr
Bathing Restrictions None
Blood Work CBC, BMP in 1-2 weeks
Instructions:
Stand-Alone Forms:
Changes to Home Medications: Yes
Discharge Medications:
DC Medications w/original date entered in [employer]
hydroxychloroquine 200 mg tablet 400 mg PO DAILY Autoimmune Disorder 01/19/15
amlodipine 5 mg tablet 5 mg PO DAILY Blood Pressure 04/29/22
esomeprazole magnesium 40 mg capsule,delayed release (Nexium) 40 mg PO DAILY Gastrointestinal Issue 04/29/22
metoprolol succinate 100 mg tablet,extended release 24 hr 100 mg PO HS Blood Pressure 04/29/22
pravastatin 20 mg tablet 20 mg PO DAILY High Cholesterol 04/29/22
valsartan 320 mg tablet 320 mg PO HS Blood Pressure 04/29/22
fluticasone fur. 200 mcg-umeclid 62.5 mcg-vilant 25 mcg inhalat.powder (Trelegy Ellipta) 1 inh inhalation R DAILY COPD 06/01/23
ipratropium 0.5 mg-albuterol 3 mg (2.5 mg base)/3 mL nebulization soln 3 ml inhalation R TIDPRN PRN sob 06/01/23
magnesium oxide 500 mg PO DAILY Supplement 06/01/23
cefuroxime axetil 500 mg tablet 500 mg PO BID 7 days #14 tabs 06/04/23
prednisone 10 mg tablet 10 mg PO DIRECTED #30 tabs 06/04/23
Home Medication Changes
Ceftin for 7 days
Prednisone taper
Pending Results: No
== END 2023-06-04 15:01 | disposition home or self-care (01) | DRG 189 ==
LOC: 4 EAST ACU 10:43
PROVIDERS: Student in an Organized Health Care Education/Training Program; ADMITTING PHYSICIAN Internal Medicine; CONSULT PHYSICIAN Internal Medicine Critical Care Medicine; EMERGENCY PHYSICIAN Emergency Medicine; FAMILY PHYSICIAN Family Medicine
PROC: 5A09357 Assistance with Respiratory Ventilation, Less than 24 Consecutive Hours, Continuous Positive Airway Pressure (ICD-10-PCS; 2023-06-03)
DX: J96.01 Acute respiratory failure with hypoxia (principal); J44.1 Chronic obstructive pulmonary disease with (acute) exacerbation; E87.1 Hypo-osmolality and hyponatremia; E78.00 Pure hypercholesterolemia, unspecified; I10 Essential (primary) hypertension; K21.9 Gastro-esophageal reflux disease without esophagitis; M06.9 Rheumatoid arthritis, unspecified; F17.210 Nicotine dependence, cigarettes, uncomplicated; J84.10 Pulmonary fibrosis, unspecified; G47.33 Obstructive sleep apnea (adult) (pediatric); G47.61 Periodic limb movement disorder; Z11.52 Encounter for screening for COVID-19; Z85.3 Personal history of malignant neoplasm of breast; Z90.11 Acquired absence of right breast and nipple; Z86.16 Personal history of COVID-19; Z17.0 Estrogen receptor positive status [ER+]; Z79.810 Long term (current) use of selective estrogen receptor modulators (SERMs); Z82.3 Family history of stroke
CPT/HCPCS: 71045; 71046; 80048; 80053; 81003; 83605; 83735; 84484; 85025; 87040; 87502; 87811; 93005; 94640; 94644; 94760; 96374; 96375; 99285; 99406

== ENCOUNTER 2023-06-17 15:33 | Emergency (ER) | payer MEDICARE, OTHER, SELFPAY ==
[2023-06-17 15:35] VITALS: BP 128/88
--- NOTE | 2023-06-17 16:03 | ED.GENMED ---
History of Present Illness
General
Chief Complaint: Chest Pain
Source: patient
Exam Limitations: none
Time Seen by Provider: 06/17/23 16:02
Nursing documentation reviewed up to this point in time: agreed with
Travel History
Have you had any contact with someone who has COVID-19?: No
Do you have any symptoms of coronavirus? Fever > 100 degrees, chills, cough, shortness of breath, sore throat, loss of taste or smell, muscle aches, or headache?: No
History of Present Illness
History of Present Illness:
67 yo female presents to the emergency department c/o right side chest pain since Tuesday. Symptoms worsening. Patient saw pulmonology on Tuesday without any findings. Today patient saw PCP and was sent to the emergency recent admission for COPD
and pulmonary fibrosis.
Past History
Past History
ED Past Medical History: Cancer (right breast 2017), COPD, GERD, HTN, Hypercholesterolemia and Other (RA)
ED Past Surgical History: Orthopedic, Tonsilectomy and Other (Right mastectomy 2017 (no chemo, no radiation))
Social History
Tobacco: Smoker (5 cigarettes/day)
Alcohol: Occasional
Drug: None
Personal:
Living: with family
Employment: Employed
Family History
Family History: Other (Nonsignificant)
Review of Systems
Review of Systems
Allergies reviewed?: Yes
All Other Systems: Not applicable
Constitutional: Reports no symptoms; Denies fever
EENT: Reports no symptoms
Respiratory: Reports trouble breathing
Cardiac: Reports chest pain
ABD/GI: Reports no symptoms
: Reports no symptoms
Musculoskeletal: Reports no symptoms
Skin: Reports no symptoms
Neurological: Reports no symptoms
Endocrine: Reports no symptoms
Hematologic/Lymphatic: Reports no symptoms
Psychiatric: Reports no symptoms
Phy Exam
Physical Exam
Physical Exam:
Physical Exam
General: no apparent distress, not acutely ill
Neck: supple. no meningeal signs. normal posterior pharynx
Heart: s1/s2 regular rate and rhythm, no murmur. equal radial
pulses.
HEENT: Pupils equal round reactive to light, EOMI
Lungs: no acute respiratory distress. clear bilaterally
Abdomen: normal bowel sounds. not tender. no CVAT
Neuro: alert and oriented. no focal neurological deficits cranial nerves II through XII intact
Skin: no rash
Psychiatric: well kept. interactive and cooperative
Extremities: no edema. no calf tenderness. negative homans. good distal pulses
Scores
Heart Score for Chest Pain Patients
STEMI patient?: No
History: Slightly or Non-Suspicious
ECG: Normal
Age: >/= 65 years
Risk Factors: 1 or 2 Risk Factors
Troponin: </= Normal Limit
Heart Score for Chest Pain Patients: 3
Heart Score Risk: 2.5% MACE over next 6 weeks
Course
Orders/Labs/Results
Orders:
Orders
06/17/23 15:40
EKG [Electrocardiogram (*1)] Urgent
Reason for Study: Chest Pain
EKG- Treatment ONCE
06/17/23 16:23
CT Chest Pe Study Urgent
Comment:
Reason For Exam: right side chest pain, short of breath
Cardiac Monitoring- Treatment ONCE
IV Insert/Care/Rem.- Treatment PRN
06/17/23 16:30
Complete Blood Count/With Diff Urgent
Comprehensive Metabolic Panel Urgent
Magnesium Urgent
PTT Urgent
Prothrombin Time Urgent
Troponin I Urgent
06/17/23 18:54
LevoFLOXacin [Levaquin] 750 mg PO NOW STA
Abnormal Lab Results
06/17/23
16:30
RBC 3.63 L 10^6/uL
(4.20-5.40)
Hgb 10.6 L g/dL
(12.0-16.0)
Hct 31.3 L %
(37.0-47.0)
RDW 14.6 H %
(11.5-14.5)
Absolute Neuts (auto) 7.5 H 10^3/uL
(1.4-6.5)
Absolute Lymphs (auto) 1.0 L 10^3/uL
(1.2-3.4)
Absolute Monos (auto) 0.7 H 10^3/uL
(0.1-0.6)
Neutrophils % 81.7 H %
(42.2-75.2)
Lymphocytes % 10.7 L %
(20.5-51.1)
Sodium 129 L mmol/L
(135-145)
Glucose 104 H mg/dl
(70-99)
Albumin 3.3 L g/dl
(3.5-5.0)
06/17/23 16:30
06/17/23 16:30
Vital Signs
Initial and Last Documented VS:
Initial Vital Signs
Temp Pulse Resp BP Pulse Ox
98.3 F 99 18 128/88 93
06/17/23 15:35 06/17/23 15:35 06/17/23 15:35 06/17/23 15:35 06/17/23 15:35
Last Documented Vital Signs
Temp Pulse Resp BP Pulse Ox
98.3 F 93 15 141/89 87
06/17/23 15:35 06/17/23 19:00 06/17/23 19:00 06/17/23 19:00 06/17/23 18:09
MDM/Problems Addressed
Differential Diagnosis Includes:
Interstitial fibrosis, pneumonia, PE
MDM/Problems Addressed:
67-year-old female with right-sided pneumonia, oxygen stable in ED, patient at baseline. She has oxygen at home. Treat with Levaquin. Joint decision-making made with patient, who states she will return if he feels worse.
Chronic conditions affecting care: COPD and Other (Pulmonary fibrosis)
Acute Exacerbation and/or Progression of Chronic Illness: COPD and Other (Pulmonary fibrosis)
*Radiology
Radiology exam reviewed: radiology read reviewed (CT chest shows no signs of PE, right-sided pneumonia, interstitial lung disease)
*Pulse Oximetry
Patient hypoxic: no
*EKG
Interpreted by ED Provider?: Yes
EKG Intrepretation Date: 06/17/23
EKG Intrepretation Time: 15:42
Interpretation: normal
Comparison EKG: no changes
Heart Rate: 97
Rate: normal
Rhythm: sinus
[place]: normal axis
Interval: normal interval
QRS Pattern: normal QRS
Ischemia: no ischemia
*Civil Engineering Designer Interpretation
Rate: normal
Interpretation: normal
Heart Rate: 95
Rhythm: sinus
*Critical Care Note
Total Time (30-74mins, 75-104mins- exclusive of procedures): Not Applicable
Data Reviewed
Review of Other/Old Records Reveals: Radiology Studies
Source: records (CT chest on 05/02/2023 showed no signs of pulmonary malignancy, but moderate pulmonary fibrosis)
Patient Management
Social determinants of health affecting care: Living situation
Escalation/DeEscalation of care consider admission/obs:
Admit not indicated
ED Attending Note
-
Portions of this chart may have been created with voice recognition software.� Occasional wrong word or��sound alike� substitutions may have occurred due to the inherent limitations of voice recognition software.
Discharge Plan
Departure
Patient Disposition: Home (Routine Discharge)
Date of Disposition: 06/17/23
Time of Disposition: 18:57
Patient with high blood pressure during this ER visit?: Yes
Condition: Good
Discharge Problem:
Pneumonia
Instructions: Pneumonia in adults
Prescriptions:
New
levofloxacin 750 mg tablet
750 mg PO DAILY 6 Days Qty: 6 0RF
No Action
hydroxychloroquine 200 MG tablet
400 mg PO DAILY
metoprolol succinate 100 mg tablet extended release 24 hr
100 mg PO HS
amlodipine 5 mg tablet
5 mg PO DAILY
valsartan 320 mg tablet
320 mg PO HS
pravastatin 20 mg tablet
20 mg PO DAILY
esomeprazole magnesium [Nexium] 40 mg Capsule,Delayed Release(Dr/Ec)
40 mg PO DAILY
Trelegy Ellipta 200-62.5-25 mcg Blister With Device
1 inh INHALATION R DAILY
ipratropium-albuterol 0.5 mg-3 mg(2.5 mg base)/3 mL Solution For Nebulization
3 ml INHALATION R TIDPRN PRN (Reason: sob)
Patient Comments:
06/01/2023, per pt., she has the supply at home to take this med. QID; however, she has recently been using this med. TIDPRN.
magnesium oxide 500 mg magnesium Tablet
500 mg PO DAILY
cefuroxime axetil 500 mg tablet
500 mg PO BID 7 Days Qty: 14 0RF
prednisone 10 mg tablet
10 mg PO DIRECTED Qty: 30 0RF
Rx Instructions:
4 tabs daily for 3 days, then 3 tabs daily for 3 days, then 2 tabs daily for 3 days, then 1 tab daily for 3 days
Referrals:
Guy Srivastava MD [Family Provider] -
Interventions
Interventions:
*Risk Screen - Suicide Last Done: 06/17/23 16:19
*General Assessment Last Done: 06/17/23 15:35
*Neglect/Abuse Screening Last Done: 06/17/23 16:19
ED- Fall Risk Assessment Last Done: 06/17/23 16:19
*ED COVID-19 Vaccine History Last Done: 06/17/23 15:35
*Nursing Disposition Last Done: 06/17/23 19:21
ED- Cardiac Assessment Last Done: 06/17/23 16:30
Discharge Date and Time
Discharge Date/Time: 06/17/23 19:22
--- NOTE | 2023-06-17 16:14 | EDRN ---
Dr. Peterosn in room w/pt at this time.
[2023-06-17 16:18] VITALS: BMI 35.0
[2023-06-17 16:22] VITALS: BP 116/78
[2023-06-17 16:44] LABS: % Basophils 0.3 % (0-2); % Immature Granulocytes 0.2 % (0-0.5); % Lymphocytes 10.7 % (20.5-51.1); % Monocytes 7.1 % (1.7-9.3); % Neutrophils 81.7 % (42.2-75.2); Absolute Monocytes 0.7 10^3/uL (0.1-0.6); Absolute Neutrophils 7.5 10^3/uL (1.4-6.5); Hematocrit 31.3 % (37.0-47.0); Hemoglobin 10.6 g/dL (12.0-16.0); Mean Corp Hgb Conc. 33.9 g/dL (33.0-37.0); Mean Corpuscular Hgb 29.2 pg (27.0-31.0); Mean Corpuscular Volume 86.2 fL (81.0-99.0); Mean Platelet Volume 9.2 fL (7.4-10.4); Nucleated Red Blood Cells % 0 %; Platelet Count 183 10^3/uL (130-400); Red Blood Cell Count 3.63 10^6/uL (4.20-5.40); Red Cell Dist. Width 14.6 % (11.5-14.5); White Blood Cell Count 9.2 10^3/uL (4.8-10.8)
[2023-06-17 16:50] LABS: INR 1.05; PT 13.5 Sec (11.4-14.6)
[2023-06-17 16:51] LABS: APTT 29.1 Sec (23.4-35.0)
[2023-06-17 17:00] VITALS: BP 127/82
[2023-06-17 17:07] LABS: ALT (SGPT) 16 U/L (0-35); AST (SGOT) 24 U/L (14-36); Albumin 3.3 g/dl (3.5-5.0); Alkaline Phosphatase 79 U/L (38-126); Blood Urea Nitrogen 13 mg/dl (7-17); Calcium 8.7 mg/dl (8.4-10.2); Carbon Dioxide 27 mmol/L (22-30); Chloride 99 mmol/L (98-107); Estimated Creatinine Clearance 97 ml/min; Glucose 104 mg/dl (70-99); Magnesium 1.7 mg/dl (1.6-2.3); Potassium 3.9 mmol/L (3.5-5.1); Sodium 129 mmol/L (135-145); Total Bilirubin 0.9 mg/dl (0.2-1.3); Total Protein 6.8 g/dl (6.3-8.2); eGFR > 60.00
[2023-06-17 18:10] LABS: Troponin I < 0.012 ng/ml
--- NOTE | 2023-06-17 18:10 | EDRN ---
On return to bed after walking to and from BR POX was 81% on room air and now is now slowly climbing. Pt was also tachypneic and had increased WOB. Now POX 92% on room air w/ HOB tyson 15 degrees
[2023-06-17 19:00] VITALS: BP 141/89
[2023-06-17] MEDS: LEVAQUIN 750 MG PO (19:09)
== END 2023-06-17 19:22 | disposition home or self-care (01) ==
LOC: EMR 15:33
PROVIDERS: EMERGENCY PHYSICIAN Emergency Medicine; FAMILY PHYSICIAN Family Medicine; OTHER PHYSICIAN Internal Medicine Critical Care Medicine
DX: J18.9 Pneumonia, unspecified organism (principal); J44.0 Chronic obstructive pulmonary disease with (acute) lower respiratory infection; J84.10 Pulmonary fibrosis, unspecified; I10 Essential (primary) hypertension; F17.210 Nicotine dependence, cigarettes, uncomplicated
CPT/HCPCS: 99285; 71275; 80053; 83735; 84484; 85025; 85610; 85730; 93005; Q9967

== ENCOUNTER → 2023-07-22 14:48 | Outpatient (REF) | payer MEDICARE, OTHER, SELFPAY | LOC: WDC 14:48 | PROVIDERS: ATTENDING PHYSICIAN Family Medicine | DX: R59.9 Enlarged lymph nodes, unspecified (principal); Z85.3 Personal history of malignant neoplasm of breast | CPT/HCPCS: 76642 ==

== ENCOUNTER → 2023-08-19 09:51 | Outpatient (REF) | payer MEDICARE, OTHER, SELFPAY | LOC: HWRAD 09:51 | PROVIDERS: ATTENDING PHYSICIAN Family Medicine | DX: E04.1 Nontoxic single thyroid nodule (principal) | CPT/HCPCS: 76536 ==

== ENCOUNTER → 2023-08-26 13:13 | Outpatient (REF) | payer MEDICARE, OTHER, SELFPAY | LOC: HWRAD 13:13 | PROVIDERS: ATTENDING PHYSICIAN Family Medicine | DX: M79.89 Other specified soft tissue disorders (principal); I82.409 Acute embolism and thrombosis of unspecified deep veins of unspecified lower extremity; J96.01 Acute respiratory failure with hypoxia | CPT/HCPCS: 93971 ==

== ENCOUNTER → 2023-09-05 10:30 | Outpatient (REF) | payer MEDICARE, OTHER, SELFPAY | LOC: HWRAD 10:30 | PROVIDERS: ATTENDING PHYSICIAN Nurse Practitioner Family; FAMILY PHYSICIAN Family Medicine | DX: Z87.01 Personal history of pneumonia (recurrent) (principal) | CPT/HCPCS: 71046 ==

== ENCOUNTER → 2023-12-23 11:09 | Outpatient (REF) | payer MEDICARE, OTHER, SELFPAY | LOC: RCS 11:09 | PROVIDERS: ATTENDING PHYSICIAN Physician Assistant; FAMILY PHYSICIAN Family Medicine | DX: J84.9 Interstitial pulmonary disease, unspecified (principal) | CPT/HCPCS: 93005 ==

== ENCOUNTER → 2024-02-04 09:25 | Outpatient (REF) | payer MEDICARE, OTHER, SELFPAY | LOC: RAD 09:25 | PROVIDERS: ATTENDING PHYSICIAN Physician Assistant Medical; FAMILY PHYSICIAN Family Medicine; REFERRING PHYSICIAN Internal Medicine | DX: R60.0 Localized edema (principal); J84.9 Interstitial pulmonary disease, unspecified | CPT/HCPCS: 71046 ==

== ENCOUNTER 2024-02-14 09:00 | Outpatient (RCR) | payer MEDICARE, OTHER, SELFPAY | END 2024-02-14 23:59 | disposition home or self-care (01) | LOC: PURB 09:00 | PROVIDERS: ATTENDING PHYSICIAN Internal Medicine; FAMILY PHYSICIAN Family Medicine | DX: J84.9 Interstitial pulmonary disease, unspecified (principal); J44.9 Chronic obstructive pulmonary disease, unspecified | CPT/HCPCS: G0237 ==

== ENCOUNTER 2024-03-27 08:15 | Outpatient (RCR) | payer MEDICARE, OTHER, SELFPAY | END 2024-03-27 23:59 | disposition home or self-care (01) | LOC: PURB 08:15 | PROVIDERS: ATTENDING PHYSICIAN Internal Medicine; FAMILY PHYSICIAN Family Medicine | DX: J84.9 Interstitial pulmonary disease, unspecified (principal); R09.02 Hypoxemia; J44.9 Chronic obstructive pulmonary disease, unspecified; G47.33 Obstructive sleep apnea (adult) (pediatric); Z87.891 Personal history of nicotine dependence; Z87.01 Personal history of pneumonia (recurrent) | CPT/HCPCS: G0239 ==

== ENCOUNTER → 2024-04-02 13:18 | Outpatient (REF) | payer MEDICARE, OTHER, SELFPAY | LOC: HWWDC 13:18 | PROVIDERS: ATTENDING PHYSICIAN Family Medicine | DX: Z12.31 Encounter for screening mammogram for malignant neoplasm of breast (principal) | CPT/HCPCS: 77063; 77067 ==

== ENCOUNTER → 2024-04-10 08:51 | Outpatient (REF) | payer MEDICARE, OTHER, SELFPAY | LOC: RSP 08:51 | PROVIDERS: ATTENDING PHYSICIAN Internal Medicine Pulmonary Disease; FAMILY PHYSICIAN Family Medicine; REFERRING PHYSICIAN Internal Medicine Rheumatology | DX: J44.9 Chronic obstructive pulmonary disease, unspecified (principal); J43.2 Centrilobular emphysema; J84.9 Interstitial pulmonary disease, unspecified; J96.11 Chronic respiratory failure with hypoxia; F17.211 Nicotine dependence, cigarettes, in remission | CPT/HCPCS: 94727; 94729; 88738; 94010 ==

== ENCOUNTER → 2024-04-16 14:06 | Outpatient (REF) | payer MEDICARE, OTHER, SELFPAY | LOC: HWRCS 14:06 | PROVIDERS: ATTENDING PHYSICIAN Internal Medicine Cardiovascular Disease; FAMILY PHYSICIAN Family Medicine | DX: R06.09 Other forms of dyspnea (principal); R00.2 Palpitations; I49.9 Cardiac arrhythmia, unspecified; J84.9 Interstitial pulmonary disease, unspecified; M06.9 Rheumatoid arthritis, unspecified | CPT/HCPCS: 93306 ==

== ENCOUNTER → 2024-04-18 09:07 | Outpatient (REF) | payer MEDICARE, OTHER, SELFPAY | LOC: RCS 09:07 | PROVIDERS: ATTENDING PHYSICIAN Internal Medicine Cardiovascular Disease; FAMILY PHYSICIAN Family Medicine; REFERRING PHYSICIAN Internal Medicine Pulmonary Disease | DX: R06.09 Other forms of dyspnea (principal); R00.2 Palpitations | CPT/HCPCS: 93225; 93226 ==

== ENCOUNTER 2024-04-19 08:15 | Outpatient (RCR) | payer MEDICARE, OTHER, SELFPAY | END 2024-04-27 11:27 | disposition home or self-care (01) | LOC: PURB 08:15 | PROVIDERS: ATTENDING PHYSICIAN Internal Medicine; FAMILY PHYSICIAN Family Medicine | DX: J84.9 Interstitial pulmonary disease, unspecified (principal); R09.02 Hypoxemia; J44.9 Chronic obstructive pulmonary disease, unspecified; G47.33 Obstructive sleep apnea (adult) (pediatric) | CPT/HCPCS: 94727; 94729; 88738; 94010; G0239 ==

== ENCOUNTER → 2024-05-23 14:15 | Outpatient (REF) | payer MEDICARE, OTHER, SELFPAY ==
[2024-05-23 16:18] LABS: Cortisol, Random 3.8 ug/dl
== END ==
LOC: REG 14:15
PROVIDERS: ATTENDING PHYSICIAN Internal Medicine Cardiovascular Disease; FAMILY PHYSICIAN Family Medicine
DX: I95.0 Idiopathic hypotension (principal); R03.1 Nonspecific low blood-pressure reading; R00.0 Tachycardia, unspecified
CPT/HCPCS: 36415; 82533

== ENCOUNTER → 2024-06-15 09:06 | Outpatient (REF) | payer MEDICARE, OTHER, SELFPAY | LOC: HWRAD 09:06 | PROVIDERS: ATTENDING PHYSICIAN Nurse Practitioner Family | DX: M25.531 Pain in right wrist (principal) | CPT/HCPCS: 73110; 73130 ==

== ENCOUNTER → 2024-07-25 12:33 | Outpatient (REF) | payer MEDICARE, OTHER, SELFPAY | LOC: HWRAD 12:33 | PROVIDERS: ATTENDING PHYSICIAN Internal Medicine Rheumatology; FAMILY PHYSICIAN Family Medicine | DX: M05.9 Rheumatoid arthritis with rheumatoid factor, unspecified (principal); M16.10 Unilateral primary osteoarthritis, unspecified hip; M25.551 Pain in right hip | CPT/HCPCS: 73523 ==

== ENCOUNTER → 2024-09-10 09:04 | Outpatient (REF) | payer MEDICARE, OTHER, SELFPAY | LOC: HWRAD 09:04 | PROVIDERS: ATTENDING PHYSICIAN Internal Medicine Rheumatology; FAMILY PHYSICIAN Family Medicine | DX: M81.0 Age-related osteoporosis without current pathological fracture (principal) | CPT/HCPCS: 77080 ==

== ENCOUNTER → 2024-09-25 07:45 | Outpatient (REF) | payer MEDICARE, OTHER, SELFPAY | LOC: RSP 07:45 | PROVIDERS: ATTENDING PHYSICIAN Internal Medicine Pulmonary Disease; FAMILY PHYSICIAN Family Medicine | DX: J84.9 Interstitial pulmonary disease, unspecified (principal); J96.11 Chronic respiratory failure with hypoxia | CPT/HCPCS: 94727; 94729; 94010; 94761 ==

== ENCOUNTER → 2025-03-12 13:00 | Outpatient (REF) | payer MEDICARE, OTHER, SELFPAY | LOC: RSP 13:00 | PROVIDERS: ATTENDING PHYSICIAN Internal Medicine Pulmonary Disease; FAMILY PHYSICIAN Family Medicine | DX: J84.9 Interstitial pulmonary disease, unspecified (principal) | CPT/HCPCS: 88738; 94010; 94727; 94729 ==